=== PATIENT | female | born 1985 | race African-American/Black ===

== ENCOUNTER 2017-04-08 07:34 | Emergency (ER) | payer SELFPAY ==
[2017-04-08] MEDS ORDERED: MAG HYDROX/AL HYDROX/SIMETH SUSP 30 ML UDCUP PO ONE (07:50)
[2017-04-08] MEDS ORDERED: METOCLOPRAMIDE HCL ORAL SOLN 10 MG/10 ML UDCUP PO ONE (07:50)
[2017-04-08] MEDS ORDERED: LIDOCAINE 2% VISCOUS SOLN 20 ML UDCUP PO ONE (07:50)
--- NOTE | 2017-04-08 07:52 | ER Document Report ---
ED General - General Chief Complaint: Upper Abdominal Pain Stated Complaint: ABDOMINAL PAIN Time Seen by Provider: 04/08/17 07:43 Mode of Arrival: Ambulatory Information source: Patient Notes: 31-year-old female presents with 2 month duration of epigastric abdominal pain. Patient notes a burning sensation associated with bad taste in her mouth. Patient denies any fevers or chills. pt admits to stress at home and at work that worsens her pain TRAVEL OUTSIDE OF THE [place] IN LAST 30 DAYS: No - HPI Onset: Other Onset/Duration: Waxing and waning Quality of pain: Burning Severity: Mild Pain Level: 1 Associated symptoms: Nausea Exacerbated by: Other - stress Relieved by: Denies Similar symptoms previously: Yes Recently seen / treated by doctor: Yes - Related Data Allergies/Adverse Reactions: No Known Allergies Allergy (Unverified 10/08/11 18:26) Past Medical History - Social History Smoking Status: Never Smoker Cigarette use (# per day): No Chew tobacco use (# tins/day): No Smoking Education Provided: No Family History: Reviewed & Not Pertinent Patient has suicidal ideation: No Patient has homicidal ideation: No Pulmonary Medical History: Reports: Hx Bronchitis Renal/ Medical History: Denies: Hx Peritoneal Dialysis Past Surgical History: Reports: Hx Tubal Ligation - Immunizations Hx Diphtheria, Pertussis, Tetanus Vaccination: Yes Review of Systems - Review of Systems Notes: REVIEW OF SYSTEMS: CONSTITUTIONAL : Denies fever, chills, or sweats. Denies recent illness. EENT: Denies eye, ear, throat, or mouth pain or symptoms. Denies nasal or sinus congestion or discharge. Denies throat, tongue, or mouth swelling or difficulty swallowing. CARDIOVASCULAR: Denies chest pain. Denies palpitations or racing or irregular heart beat. Denies ankle edema. RESPIRATORY: Denies cough, cold, or chest congestion. Denies shortness of breath, difficulty breathing, or wheezing. GASTROINTESTINAL: chest pain GENITOURINARY: Denies difficulty urinating, painful urination, burning, frequency, blood in urine, or discharge. FEMALE GENITOURINARY: Denies vaginal bleeding, heavy or abnormal periods, irregular periods. Denies vaginal discharge or odor. MUSCULOSKELETAL: Denies back or neck pain or stiffness. Denies joint pain or swelling. SKIN: Denies rash, lesions or sores. HEMATOLOGIC : Denies easy bruising or bleeding. LYMPHATIC: Denies swollen, enlarged glands. NEUROLOGICAL: Denies confusion or altered mental status. Denies passing out or loss of consciousness. Denies dizziness or lightheadedness. Denies headache. Denies weakness or paralysis or loss of use of either side. Denies problems with gait or speech. Denies sensory loss, numbness, or tingling. Denies seizures. PSYCHIATRIC: Denies anxiety or stress. Denies depression, suicidal ideation, or homicidal ideation. ALL OTHER SYSTEMS REVIEWED AND NEGATIVE. PHYSICAL EXAMINATION: GENERAL: Well-appearing, well-nourished and in no acute distress. HEAD: Atraumatic, normocephalic. EYES: Pupils equal round and reactive to light, extraocular movements intact, conjunctiva are normal. ENT: Nares patent, oropharynx clear without exudates. Moist mucous membranes. NECK: Normal range of motion, supple without lymphadenopathy LUNGS: Breath sounds clear to auscultation bilaterally and equal. No wheezes rales or rhonchi. HEART: Regular rate and rhythm without murmurs ABDOMEN: Soft, epigastric pain on palpation, no rebound or guarding , no vomiting blood or dark stools at home Female : deferred Musculoskeletal: Normal range of motion, no pitting or edema. No cyanosis. NEUROLOGICAL: Cranial nerves grossly intact. Normal speech, normal gait. Normal sensory, motor exams PSYCH: Normal mood, normal affect. SKIN: Warm, Dry, normal turgor, no rashes or lesions noted. Dictation was performed using blogfoster voice recognition software Physical Exam - Vital signs Vitals: Temp Pulse Resp BP Pulse Ox 98.2 F 81 16 141/92 H 98 04/08/17 07:36 04/08/17 07:36 04/08/17 07:36 04/08/17 07:36 04/08/17 07:36 Course - Re-evaluation Re-evalutation: 04/08/17 07:52 Patient has probable gastritis, will be started on GI cocktail lab work pending 04/08/17 09:30 Patient notes symptoms have improved significantly, she will be placed on Pepcid given follow-up with GI is otherwise well-appearing no distress After performing a Medical Screening Examination, I estimate there is LOW risk for ACUTE APPENDICITIS, BOWEL OBSTRUCTION, ACUTE CHOLECYSTITIS, PERFORATED DIVERTICULITIS, INCARCERATED HERNIA, PANCREATITIS, PELVIC INFLAMMATORY DISEASE, PERFORATED ULCER, ECTOPIC , or TUBO-OVARIAN ABSCESS, thus I consider the discharge disposition reasonable. Also, there is no evidence or peritonitis , sepsis, or toxicity. I have reevaluated this patient multiple times and no significant life threatening changes are noted. The patient and I have discussed the diagnosis and risks, and we agree with discharging home with close follow-up with the understanding that symptoms and presentations can change. We also discussed returning to the Emergency Department immediately if new or worsening symptoms occur. We have discussed the symptoms which are most concerning (e.g., bloody stool, fever, changing or worsening pain, vomiting) that necessitate immediate return. - Vital Signs Vital signs: Temp Pulse Resp BP Pulse Ox 98.2 F 81 16 141/92 H 98 04/08/17 07:36 04/08/17 07:36 04/08/17 07:36 04/08/17 07:36 04/08/17 07:36 - Laboratory Result Diagrams: 04/08/17 08:00 04/08/17 08:00 Laboratory results interpreted by me: 04/08/17 04/08/17 08:00 08:40 Hgb 11.4 L Hct 34.3 L MCH 26.5 L Ur Leukocyte Esterase MODERATE H Discharge - Discharge Clinical Impression: Epigastric abdominal pain GERD (gastroesophageal reflux disease) Qualifiers: Esophagitis presence: with esophagitis Qualified Code(s): K21.0 - Gastro- esophageal reflux disease with esophagitis Condition: Stable Disposition: HOME, SELF-CARE Instructions: Gastritis ([facility]) Prescriptions: Famotidine [Pepcid 20 mg Tablet] 20 mg PO DAILY #30 tablet Referrals: RADHA PULIDO MD [ACTIVE STAFF] - Follow up tomorrow
[2017-04-08 08:19] LABS: ABSOLUTE BASOPHILS # (AUTO) 0.1 10^3/uL (0.0-0.2); ABSOLUTE EOSINOPHILS # (AUTO) 0.2 10^3/uL (0.0-0.6); ABSOLUTE LYMPHOCYTES (AUTO) 2.5 10^3/uL (0.5-4.7); ABSOLUTE MONOCYTES (AUTO) 0.6 10^3/uL (0.1-1.4); ABSOLUTE NEUT (AUTO) 6.9 10^3/uL (1.7-8.2); BASOPHILS % (AUTO) 0.8 % (0-2); EOSINOPHILS % (AUTO) 1.5 % (0-6); HEMATOCRIT 34.3 % (36.0-47.0); HEMOGLOBIN 11.4 g/dL (12.0-15.5); HGB HCT DIFFERENCE -0.1; LYMPHOCYTES % (AUTO) 24.3 % (13-45); MEAN CORPUSCULAR HEMOGLOBIN 26.5 pg (27.0-33.4); MEAN CORPUSCULAR HGB CONC 33.2 g/dL (32.0-36.0); MEAN CORPUSCULAR VOLUME 80 fl (80-97); MONOCYTES % (AUTO) 6.1 % (3-13); RED BLOOD COUNT 4.29 10^6/uL (3.72-5.28); RED CELL DISTRIBUTION WIDTH 13.7 % (11.5-14.0); SEGMENTED NEUTROPHILS % (AUTO) 67.3 % (42-78); WHITE BLOOD COUNT 10.2 10^3/uL (4.0-10.5)
[2017-04-08 08:41] LABS: ALANINE AMINOTRANSFERASE 24 U/L (9-52); ALBUMIN 4.1 g/dL (3.5-5.0); ALKALINE PHOSPHATASE 57 U/L (38-126); ANION GAP 11 (5-19); ASPARTATE AMINO TRANSFERASE 22 U/L (14-36); BILIRUBIN,DIRECT 0.4 mg/dL (0.0-0.4); BILIRUBIN,TOTAL 0.4 mg/dL (0.2-1.3); BLOOD UREA NITROGEN 8 mg/dL (7-20); CALCIUM 9.7 mg/dL (8.4-10.2); CARBON DIOXIDE 23 mmol/L (22-30); CHLORIDE 107 mmol/L (98-107); CREATININE RESULT 0.62 mg/dL (0.52-1.25); GLUCOSE 88 mg/dL (75-110); LIPASE 30.6 U/L (23-300); POTASSIUM 3.9 mmol/L (3.6-5.0); SODIUM 141.4 mmol/L (137-145); TOTAL PROTEIN 7.5 g/dL (6.3-8.2)
[2017-04-08 09:00] LABS: APPEARANCE,URINE SLIGHTLY-CLOUDY; BILIRUBIN,URINE NEGATIVE (NEGATIVE); GLUCOSE, URINE NEGATIVE (NEGATIVE); KETONES,URINE NEGATIVE (NEGATIVE); LEUKOCYTE ESTERASE,URINE MODERATE (NEGATIVE); NITRITE,URINE NEGATIVE (NEGATIVE); PROTEIN,URINE NEGATIVE (NEGATIVE); URINE SPECIFIC GRAVITY 1.012; UROBILINOGEN,URINE NEGATIVE mg/dL (<2.0)
[2017-04-08 09:43] VITALS: BP 138/86
== END 2017-04-08 09:45 | disposition home or self-care (01) ==
LOC: ER 07:34
DX: K21.0 Gastro-esophageal reflux disease with esophagitis (principal); R10.13 Epigastric pain; R07.9 Chest pain, unspecified
CPT/HCPCS: 99284; 36415; 83690; 85025; 81025; 80053; 81001; J3490

== ENCOUNTER 2017-04-21 14:57 | Emergency (ER) | payer SELFPAY ==
[2017-04-21] MEDS ORDERED: LIDOCAINE 2% VISCOUS SOLN 20 ML UDCUP PO ONE (16:37)
[2017-04-21] MEDS ORDERED: MAG HYDROX/AL HYDROX/SIMETH SUSP 30 ML UDCUP PO ONE (16:37)
[2017-04-21] MEDS ORDERED: METOCLOPRAMIDE HCL ORAL SOLN 10 MG/10 ML UDCUP PO ONE (16:37)
--- NOTE | 2017-04-21 16:39 | ER Document Report ---
ED GI/ - General Chief Complaint: Abdominal Pain Stated Complaint: CHEST PAIN Time Seen by Provider: 04/21/17 16:36 Mode of Arrival: Ambulatory Information source: Patient Notes: Pt is a 31 year old female who presents to the ER today for 1 month of epigastric pain radiating up into her chest. She was seen here on 04/08 and given pepcid after a GI cocktail did make her feel better. She states the pepcid is not working. She hasn't tried anything else for this. She admits to nausea but no vomiting, denies diarrhea, fever, chills. TRAVEL OUTSIDE OF THE [place] IN LAST 30 DAYS: No - Related Data Allergies/Adverse Reactions: No Known Allergies Allergy (Unverified 10/08/11 18:26) Past Medical History - General Information source: Patient - Social History Smoking Status: Never Smoker Chew tobacco use (# tins/day): No Frequency of alcohol use: Occasional Drug Abuse: None Family History: Reviewed & Not Pertinent Pulmonary Medical History: Reports: Hx Bronchitis Renal/ Medical History: Denies: Hx Peritoneal Dialysis Past Surgical History: Reports: Hx Tubal Ligation - Immunizations Hx Diphtheria, Pertussis, Tetanus Vaccination: Yes Review of Systems - Review of Systems Constitutional: No symptoms reported EENT: No symptoms reported Cardiovascular: No symptoms reported Respiratory: No symptoms reported Gastrointestinal: See HPI Genitourinary: No symptoms reported Female Genitourinary: No symptoms reported Musculoskeletal: No symptoms reported Skin: No symptoms reported Hematologic/Lymphatic: No symptoms reported Neurological/Psychological: No symptoms reported Physical Exam - Vital signs Vitals: Temp Pulse Resp BP Pulse Ox 98.5 F 67 18 151/101 H 100 04/21/17 15:08 04/21/17 15:08 04/21/17 15:08 04/21/17 15:08 04/21/17 15:08 - Notes Notes: PHYSICAL EXAMINATION: GENERAL: Well-appearing and in no acute distress. HEAD: Atraumatic, normocephalic. EYES: Pupils equal round and reactive to light, extraocular movements intact, sclera anicteric, conjunctiva are normal. NECK: Normal range of motion, supple without lymphadenopathy LUNGS: CTAB and equal. No wheezes rales or rhonchi. HEART: Regular rate and rhythm without murmurs ABDOMEN: Soft, epigastric tenderness. No guarding, no rebound BACK: no vertebral tenderness, normal ROM GI/: no CVA tenderness EXTREMITIES: Normal range of motion, no pitting edema. No cyanosis. NEUROLOGICAL: Cranial nerves grossly intact. Normal sensory/motor exams. PSYCH: Normal mood, normal affect. SKIN: Warm, Dry, normal turgor, no rashes or lesions noted Course - Re-evaluation Re-evalutation: 04/21/17 18:08 Pt feels better after GI cocktail. Will be discharged with carafate and prilosec. h pylori pending. labwork unremarkable. - Vital Signs Vital signs: Temp Pulse Resp BP Pulse Ox 98.6 F 67 18 151/93 H 100 04/21/17 16:32 04/21/17 16:32 04/21/17 16:32 04/21/17 16:32 04/21/17 16:32 - Laboratory Result Diagrams: 04/21/17 17:46 04/21/17 17:46 Laboratory results interpreted by me: 04/21/17 04/21/17 17:46 17:46 WBC 12.2 H MCH 26.0 L Absolute Neutrophils 8.7 H Total Protein 8.4 H Discharge - Discharge Clinical Impression: Epigastric pain Condition: Stable Disposition: HOME, SELF-CARE Additional Instructions: Return immediately for any new or worsening symptoms. Follow up with [facility], call tomorrow to make followup appointment. Prescriptions: Omeprazole Magnesium [Prilosec Otc] 20 mg PO BID #30 tablet. Sucralfate [Carafate 1 gm Tablet] 1 gm PO ACHS #40 tablet Referrals: LESLYE SPIVEY MD [ACTIVE STAFF] - Follow up as needed
[2017-04-21 18:07] LABS: ABSOLUTE BASOPHILS # (AUTO) 0.1 10^3/uL (0.0-0.2); ABSOLUTE EOSINOPHILS # (AUTO) 0.1 10^3/uL (0.0-0.6); ABSOLUTE LYMPHOCYTES (AUTO) 2.7 10^3/uL (0.5-4.7); ABSOLUTE MONOCYTES (AUTO) 0.7 10^3/uL (0.1-1.4); ABSOLUTE NEUT (AUTO) 8.7 10^3/uL (1.7-8.2); BASOPHILS % (AUTO) 0.8 % (0-2); EOSINOPHILS % (AUTO) 0.7 % (0-6); HEMATOCRIT 37.1 % (36.0-47.0); HGB HCT DIFFERENCE -1.1; LYMPHOCYTES % (AUTO) 22.2 % (13-45); MEAN CORPUSCULAR HGB CONC 32.2 g/dL (32.0-36.0); MEAN CORPUSCULAR VOLUME 81 fl (80-97); MONOCYTES % (AUTO) 5.4 % (3-13); RED CELL DISTRIBUTION WIDTH 13.8 % (11.5-14.0); SEGMENTED NEUTROPHILS % (AUTO) 70.9 % (42-78); WHITE BLOOD COUNT 12.2 10^3/uL (4.0-10.5)
[2017-04-21 18:22] LABS: ALANINE AMINOTRANSFERASE 27 U/L (9-52); ALBUMIN 4.6 g/dL (3.5-5.0); ALKALINE PHOSPHATASE 74 U/L (38-126); ANION GAP 13 (5-19); ASPARTATE AMINO TRANSFERASE 21 U/L (14-36); BILIRUBIN,DIRECT 0.3 mg/dL (0.0-0.4); BILIRUBIN,TOTAL 0.4 mg/dL (0.2-1.3); BLOOD UREA NITROGEN 11 mg/dL (7-20); CALCIUM 10.1 mg/dL (8.4-10.2); CARBON DIOXIDE 27 mmol/L (22-30); CHLORIDE 102 mmol/L (98-107); CREATININE RESULT 0.69 mg/dL (0.52-1.25); GLUCOSE 81 mg/dL (75-110); POTASSIUM 4.6 mmol/L (3.6-5.0); SODIUM 141.9 mmol/L (137-145); TOTAL PROTEIN 8.4 g/dL (6.3-8.2)
[2017-04-21] MEDS ORDERED: SUCRALFATE 1 GM TABLET PO ONE (18:52)
[2017-04-21 19:18] VITALS: BP 144/109
== END 2017-04-21 19:17 | disposition home or self-care (01) ==
LOC: ER 14:57
DX: R10.13 Epigastric pain (principal); R07.9 Chest pain, unspecified; Z98.51 Tubal ligation status
CPT/HCPCS: 99284; 86677 ×3; 36415; 84703; 85025; 80053; J3490

== ENCOUNTER 2017-10-24 10:06 | Emergency (ER) | payer SELFPAY ==
[2017-10-24] MEDS ORDERED: NAPROXEN 250 MG TABLET PO ONE (10:21)
--- NOTE | 2017-10-24 10:24 | ER Document Report ---
ED Medical Screen (RME) - General Chief Complaint: Vaginal Bleeding Stated Complaint: VAGINAL BLEEDING Time Seen by Provider: 10/24/17 10:17 Notes: 32-year-old female patient past history of bilateral tubal ligation, uterine ablation for dysfunctional bleeding in 2016. She began having dark heavy vaginal bleeding with some clots yesterday. Today it is a light red spotting. She does have significant lower abdominal cramping. I have greeted and performed a rapid initial assessment of this patient. A comprehensive ED assessment and evaluation of the patient, analysis of test results and completion of the medical decision making process will be conducted by additional ED providers. TRAVEL OUTSIDE OF THE [place] IN LAST 30 DAYS: No - Related Data Allergies/Adverse Reactions: No Known Allergies Allergy (Unverified 10/08/11 18:26) Past Medical History Pulmonary Medical History: Reports: Hx Bronchitis Renal/ Medical History: Denies: Hx Peritoneal Dialysis Past Surgical History: Reports: Hx Tubal Ligation - Immunizations Hx Diphtheria, Pertussis, Tetanus Vaccination: Yes Physical Exam - Vital signs Vitals: Temp Pulse Resp BP Pulse Ox 98.3 F 69 20 147/95 H 99 10/24/17 10:14 10/24/17 10:14 10/24/17 10:14 10/24/17 10:14 10/24/17 10:14 Course - Vital Signs Vital signs: Temp Pulse Resp BP Pulse Ox 98.3 F 69 20 147/95 H 99 10/24/17 10:14 10/24/17 10:14 10/24/17 10:14 10/24/17 10:14 10/24/17 10:14
[2017-10-24 10:46] LABS: ABSOLUTE EOSINOPHILS # (AUTO) 0.1 10^3/uL (0.0-0.6); ABSOLUTE LYMPHOCYTES (AUTO) 2.6 10^3/uL (0.5-4.7); ABSOLUTE MONOCYTES (AUTO) 0.7 10^3/uL (0.1-1.4); BASOPHILS % (AUTO) 0.3 % (0-2); EOSINOPHILS % (AUTO) 0.9 % (0-6); HEMATOCRIT 37.8 % (36.0-47.0); HEMOGLOBIN 12.4 g/dL (12.0-15.5); MEAN CORPUSCULAR HEMOGLOBIN 26.4 pg (27.0-33.4); MEAN CORPUSCULAR HGB CONC 32.7 g/dL (32.0-36.0); MEAN CORPUSCULAR VOLUME 81 fl (80-97); MONOCYTES % (AUTO) 7.5 % (3-13); PLATELET COUNT 338 10^3/uL (150-450); RED BLOOD COUNT 4.68 10^6/uL (3.72-5.28); RED CELL DISTRIBUTION WIDTH 14.2 % (11.5-14.0); SEGMENTED NEUTROPHILS % (AUTO) 63.3 % (42-78); TOTAL CELLS COUNTED % (AUTO) 100 %; WHITE BLOOD COUNT 9.4 10^3/uL (4.0-10.5)
[2017-10-24 11:04] LABS: ALANINE AMINOTRANSFERASE 31 U/L (9-52); ALBUMIN 4.3 g/dL (3.5-5.0); ALKALINE PHOSPHATASE 65 U/L (38-126); ANION GAP 11 (5-19); ASPARTATE AMINO TRANSFERASE 24 U/L (14-36); BILIRUBIN,DIRECT 0.2 mg/dL (0.0-0.4); BILIRUBIN,TOTAL 0.4 mg/dL (0.2-1.3); BLOOD UREA NITROGEN 10 mg/dL (7-20); CALCIUM 9.9 mg/dL (8.4-10.2); CARBON DIOXIDE 27 mmol/L (22-30); CHLORIDE 103 mmol/L (98-107); GLUCOSE 85 mg/dL (75-110); POTASSIUM 4.7 mmol/L (3.6-5.0); SODIUM 141.3 mmol/L (137-145); TOTAL PROTEIN 7.7 g/dL (6.3-8.2)
--- NOTE | 2017-10-24 11:07 | ER Document Report ---
ED General - General Chief Complaint: Vaginal Bleeding Stated Complaint: VAGINAL BLEEDING Time Seen by Provider: 10/24/17 10:17 Mode of Arrival: Ambulatory Information source: Patient Notes: Patient presents emergency department with complaints of vaginal bleeding. She reports last night she noted vaginal bleeding, a blood clot. She reports her abdomen feels warm now, denies pain since naproxen provided here. Reports spotting now. Denies f/n/v/d. Patient denies trauma. Reports no recent sexual interactions. Denies pain with void. TRAVEL OUTSIDE OF THE [place] IN LAST 30 DAYS: No - Related Data Allergies/Adverse Reactions: No Known Allergies Allergy (Unverified 10/08/11 18:26) Past Medical History - General Information source: Patient Last Menstrual Period: 08/29/2015 - Social History Smoking Status: Never Smoker Chew tobacco use (# tins/day): No Frequency of alcohol use: Occasional Drug Abuse: None Family History: CAD, DM, Hypertension, Other - breast cancer Patient has suicidal ideation: No Patient has homicidal ideation: No Pulmonary Medical History: Reports: Hx Bronchitis Renal/ Medical History: Denies: Hx Peritoneal Dialysis Past Surgical History: Reports: Hx Gynecologic Surgery - ablation, Hx Tubal Ligation - Immunizations Hx Diphtheria, Pertussis, Tetanus Vaccination: Yes Review of Systems - Review of Systems Notes: Review HPI for review of systems., All other systems negative Physical Exam - Vital signs Vitals: Temp Pulse Resp BP Pulse Ox 98.3 F 69 20 147/95 H 99 10/24/17 10:14 10/24/17 10:14 10/24/17 10:14 10/24/17 10:14 10/24/17 10:14 - Notes Notes: PHYSICAL EXAMINATION: GENERAL: Well-appearing and in no acute distress, anxious looking HEAD: Atraumatic, normocephalic. EYES: Pupils equal round extraocular movements intact, sclera anicteric, conjunctiva are normal. ENT: nares patent, . Moist mucous membranes. NECK: Normal range of motion, supple without lymphadenopathy LUNGS: CTAB and equal. No wheezes rales or rhonchi. HEART: Regular rate and rhythm without murmurs ABDOMEN: Soft, no tenderness. No guarding, no rebound reports her abdomen feels warm EXTREMITIES: Normal range of motion, no pitting edema. No cyanosis. NEUROLOGICAL: Cranial nerves grossly intact. Normal sensory/motor exams. PSYCH: Normal mood, normal affect. SKIN: Warm, Dry, normal turgor, no rashes or lesions noted Course - Re-evaluation Re-evalutation: 10/24/17 11:[address] Gordon, US report discussed. He reports this is not uncommon. Patient to fu with REPAIR MILLER. Patient was instructed on ultrasound report. Patient was instructed on the importance of follow-up with REPAIR MILLER or the health department. She was also instructed to return to the emergency department for heavy bleeding. 10/24/17 12:02 Patient declines pelvic exam at this time. She denies pelvic pain, denies vag. discharge. Patient reports that she has not been spotting since her exam. Again empathized the importance of fu andreturn to ed for worsening conditions. - Vital Signs Vital signs: Temp Pulse Resp BP Pulse Ox 98.3 F 69 20 147/95 H 99 10/24/17 10:14 10/24/17 10:14 10/24/17 10:14 10/24/17 10:14 10/24/17 10:14 - Laboratory Result Diagrams: 10/24/17 10:31 10/24/17 10:31 Laboratory results interpreted by me: 10/24/17 10:31 MCH 26.4 L RDW 14.2 H - Diagnostic Test Radiology reviewed: Image reviewed, Reports reviewed Discharge - Discharge Clinical Impression: Vaginal bleeding Fibroid Qualifiers: Uterine leiomyoma location: unspecified location Qualified Code(s): D25.9 - Leiomyoma of uterus, unspecified Condition: Stable Disposition: HOME, SELF-CARE Instructions: [facility] [place] Additional Instructions: ,*You have been evaluated for vaginal bleeding, cramping, suspect fibroid *Take ibuprofen for abdominal cramping *Follow up with an REPAIR MILLER or the health department Thursday *Return to ED for worsening condition, changes, needs *Return to ED if not better in 24 hours Monitor your blood pressure. Your blood pressure was elevated today. This may be because you were anxious, in pain or because you need medication. It is important to follow up with your primary care provider for full evaluation. Forms: Elevated Blood Pressure
--- NOTE | 2017-10-24 11:17 | RADIOLOGY REPORT (SQ) ---
EXAM DESCRIPTION: U/S NON-OB PELVIS TV W/O DOP COMPLETED DATE/TIME: 10/24/2017 11:00 am REASON FOR STUDY: bleeding w/ cramps-ablation in 2016, BTL COMPARISON: 04/06/2011 TECHNIQUE: Dynamic and static grayscale images acquired of the pelvis via transvaginal approach and recorded on PACS. Additional selected color Doppler and spectral images recorded. LIMITATIONS: Patient body habitus FINDINGS: UTERUS: There is a 1 cm rounded hypoechoic lesion in the posterior wall of the uterus, lik elieser representing a fibroid. The uterus is otherwise unremarkable. ENDOMETRIAL STRIPE: The endometrium measures 11 mm in thickness. There is some fluid noted within th e endometrial canal. CERVIX: No nabothian cysts. RIGHT OVARY: Ovary not visualized. RIGHT OVARY DOPPLER: Ovary not visualized. LEFT OVARY: Ovary not visualized. LEFT OVARY DOPPLER: Ovary not visualized. FREE FLUID: None noted. OTHER: No other significant finding. MEASUREMENTS: UTERUS: 8.9 x 5.3 x 5.1 cm ENDOMETRIAL STRIPE: 11 mm RIGHT OVARY: Not visualized. LEFT OVARY: Not visualized. IMPRESSION: 1. Fluid present within the endometrial canal 2. 1 cm hypoechoic mass in the posterior wall of the uterus, likely representing a fibroid. 3. Nonvisualization of the ovaries secondary to body habitus and overlying bowel gas TECHNICAL DOCUMENTATION: JOB ID: [id number] [employer]- All Rights Reserved Reading location - IP/workstation name: [email or web address]
[2017-10-24 12:28] VITALS: BP 144/79
== END 2017-10-24 12:28 | disposition home or self-care (01) ==
LOC: ER 10:06
DX: N93.8 Other specified abnormal uterine and vaginal bleeding (principal); D25.9 Leiomyoma of uterus, unspecified; Z98.51 Tubal ligation status
CPT/HCPCS: 36415; 76830; 80053; 84703; 85025; 99284

== ENCOUNTER 2018-03-01 11:02 | Emergency (ER) | payer SELFPAY ==
[2018-03-01] MEDS ORDERED: RINGERS SOLUTION,LACTATED 1,000 ML IV ONE (11:52)
[2018-03-01 12:44] LABS: APPEARANCE,URINE CLEAR; BILIRUBIN,URINE NEGATIVE (NEGATIVE); COLOR,URINE STRAW; GLUCOSE, URINE NEGATIVE (NEGATIVE); KETONES,URINE NEGATIVE (NEGATIVE); LEUKOCYTE ESTERASE,URINE SMALL (NEGATIVE); NITRITE,URINE NEGATIVE (NEGATIVE); PROTEIN,URINE NEGATIVE (NEGATIVE); UROBILINOGEN,URINE NEGATIVE mg/dL (<2.0)
--- NOTE | 2018-03-01 15:56 | RADIOLOGY REPORT (SQ) ---
EXAM DESCRIPTION: U/S NON OB PEL W/DOPPLER COMPLETED DATE/TIME: 03/01/2018 3:24 pm REASON FOR STUDY: pelvic pain, abn bleeding COMPARISON: 10/24/2017 TECHNIQUE: Dynamic and static grayscale images acquired of the pelvis via transabdominal approach an d recorded on PACS. Additional selected color Doppler and spectral images recorded. LIMITATIONS: None. FINDINGS: UTERUS: Normal contour. There is about 11 mm hypodense area adjacent to the endometrium i n the posterior myometrium suggestive of a fibroid. ENDOMETRIAL STRIPE: Somewhat heterogeneous in appearance. Question presence of a small amount of flu id in the endometrial canal. No significant thickening. CERVIX: 2.1 cm. RIGHT OVARY AND DOPPLER: Normal size. No worrisome masses. Normal arterial vascular flow without evid ence for torsion. LEFT OVARY AND DOPPLER: Normal size. No worrisome masses. Normal arterial vascular flow without evide nce for torsion. FREE FLUID: None noted. OTHER: No other significant finding. MEASUREMENTS: UTERUS: 8.1 x 4 x 4.3 cm. RIGHT OVARY: 3.3 x 1.5 x 1.9 cm. LEFT OVARY: 2.9 x 1.7 x 1.9 cm. IMPRESSION: Small sub endometrial fibroid. Very small amount of fluid in the endometrial canal. TECHNICAL DOCUMENTATION: JOB ID: [id number] [employer]- All Rights Reserved Rev-11/27 Reading location - IP/workstation name: [email or web address]
[2018-03-01 15:58] LABS: ABSOLUTE BASOPHILS # (AUTO) 0.1 10^3/uL (0.0-0.2); ABSOLUTE EOSINOPHILS # (AUTO) 0.1 10^3/uL (0.0-0.6); ABSOLUTE LYMPHOCYTES (AUTO) 3.2 10^3/uL (0.5-4.7); ABSOLUTE MONOCYTES (AUTO) 0.4 10^3/uL (0.1-1.4); ABSOLUTE NEUT (AUTO) 6.9 10^3/uL (1.7-8.2); BASOPHILS % (AUTO) 1.1 % (0-2); EOSINOPHILS % (AUTO) 0.7 % (0-6); HEMATOCRIT 36.9 % (36.0-47.0); HEMOGLOBIN 12.3 g/dL (12.0-15.5); LYMPHOCYTES % (AUTO) 29.9 % (13-45); MEAN CORPUSCULAR HGB CONC 33.4 g/dL (32.0-36.0); MEAN CORPUSCULAR VOLUME 81 fl (80-97); MONOCYTES % (AUTO) 4.2 % (3-13); PLATELET COUNT 341 10^3/uL (150-450); RED BLOOD COUNT 4.57 10^6/uL (3.72-5.28); RED CELL DISTRIBUTION WIDTH 13.9 % (11.5-14.0); SEGMENTED NEUTROPHILS % (AUTO) 64.1 % (42-78); TOTAL CELLS COUNTED % (AUTO) 100 %; WHITE BLOOD COUNT 10.8 10^3/uL (4.0-10.5)
--- NOTE | 2018-03-01 16:07 | ER Document Report ---
ED General - General Chief Complaint: Vaginal Bleeding Stated Complaint: VAGINAL BLEEDING Time Seen by Provider: 03/01/18 11:46 Notes: 32-year-old female patient emergency department chief complaint of heavy vaginal bleeding and syncope. Patient states that she had this happen once before. Has gone through a whole pack of pads over the last couple of days. Patient says that she was at work but like she was going to pass out. The next thing she remembers she was in the office laying on the floor. Prior history of significant vaginal bleeding requiring ablation. TRAVEL OUTSIDE OF THE [place] IN LAST 30 DAYS: No - HPI Onset: Just prior to arrival Onset/Duration: Gradual Quality of pain: No pain Severity: Mild Pain Level: 0 - Related Data Allergies/Adverse Reactions: No Known Allergies Allergy (Verified 03/01/18 11:03) Past Medical History - General Information source: Patient - Social History Smoking Status: Never Smoker Cigarette use (# per day): No Frequency of alcohol use: None Drug Abuse: None Lives with: Spouse/Significant other Family History: CAD, DM, Hypertension, Other - breast cancer Patient has suicidal ideation: No Patient has homicidal ideation: No - Medical History Medical History: Negative Pulmonary Medical History: Reports: Hx Bronchitis Renal/ Medical History: Denies: Hx Peritoneal Dialysis Past Surgical History: Reports: Hx Gynecologic Surgery - ablation, Hx Tubal Ligation - Immunizations Hx Diphtheria, Pertussis, Tetanus Vaccination: Yes Review of Systems - Review of Systems Notes: Constitutional: denies: Chills, Diaphoresis, Fever, Malaise, Weakness EENT: denies: Eye discharge, Blurred vision, Tearing, Double vision, Nose congestion, Nose discharge, Throat swelling, Mouth pain Cardiovascular: denies: Palpitations, Heart racing, Orthopnea, Dyspnea, Chest pain. Complains of syncopal episode Respiratory: denies: Cough, Hurts to breathe, Wheezing, Shortness of breath Gastrointestinal: denies: Abdominal pain, Diarrhea, Nausea, Vomiting, Black stools, bright red blood in stool Genitourinary: denies: Burning, Dysuria, Discharge, Frequency, Flank pain, Hematuria. Complains of significant vaginal bleeding. Musculoskeletal: denies: Joint pain, Joint swelling, Muscle pain, Muscle stiffness, back pain Hematologic/Lymphatic: denies: Anemia, Easy bleeding, Easy bruising, Blood clots Neurological/Psychological: denies: Confusion, Dementia, Depression, Loss of consciousness Skin: No lesions, no masses, no skin breakdown, no abscesses Physical Exam - Vital signs Vitals: Temp Pulse Resp BP Pulse Ox 98.2 F 55 L 16 144/94 H 100 03/01/18 11:22 03/01/18 11:22 03/01/18 11:22 03/01/18 11:22 03/01/18 11:22 Interpretation: Normal - General General appearance: Appears well, Alert - HEENT Head: Normocephalic, Atraumatic Eyes: Normal Pupils: PERRL - Respiratory Respiratory status: No respiratory distress Chest status: Nontender Breath sounds: Normal Chest palpation: Normal - Cardiovascular Rhythm: Regular Heart sounds: Normal auscultation Murmur: No - Abdominal Inspection: Normal Distension: No distension Bowel sounds: Normal Tenderness: Nontender Organomegaly: No organomegaly - Back Back: Normal, Nontender - Extremities General upper extremity: Normal inspection, Nontender, Normal color, Normal ROM , Normal temperature General lower extremity: Normal inspection, Nontender, Normal color, Normal ROM , Normal temperature, Normal weight bearing. No: Emili's sign - Neurological Neuro grossly intact: Yes Cognition: Normal Orientation: AAOx4 Janine Coma Scale Eye Opening: Spontaneous Janine Coma Scale Verbal: Oriented Janine Coma Scale Motor: Obeys Commands Janine Coma Scale Total: 15 Speech: Normal Motor strength normal: LUE, RUE, LLE, RLE Sensory: Normal - Psychological Associated symptoms: Normal affect, Normal mood - Skin Skin Temperature: Warm Skin Moisture: Dry Skin Color: Normal Course - Re-evaluation Re-evalutation: 03/01/18 17:36 Patient's labs are unremarkable. EKG normal. Patient does not meet any criteria for immediate surgery. Is not exsanguinating. Not hypotensive. Not tachycardic. Has a fibroid which will need to be evaluated by RAILWAY SIGNAL OPERATOR as an outpatient. Will DC at this time in stable condition. 03/01/18 17:37 Laboratory 03/01/18 03/01/18 03/01/18 12:01 15:40 15:40 WBC 10.8 H RBC 4.57 Hgb 12.3 Hct 36.9 MCV 81 MCH 27.0 MCHC 33.4 RDW 13.9 Plt Count 341 Seg Neutrophils % 64.1 Lymphocytes % 29.9 Monocytes % 4.2 Eosinophils % 0.7 Basophils % 1.1 Absolute Neutrophils 6.9 Absolute Lymphocytes 3.2 Absolute Monocytes 0.4 Absolute Eosinophils 0.1 Absolute Basophils 0.1 Sodium 141.3 Potassium 4.0 Chloride 102 Carbon Dioxide 27 Anion Gap 12 BUN 9 Creatinine 0.68 Est GFR ( Amer) > 60 Est GFR (Non-Af Amer) > 60 Glucose 78 Calcium 9.4 Total Bilirubin 0.4 Direct Bilirubin 0.3 Neonat Total Bilirubin Not Reportable Neonat Direct Bilirubin Not Reportable Neonat Indirect Bili Not Reportable AST 29 ALT 15 Alkaline Phosphatase 62 Total Protein 9.1 H Albumin 4.5 Beta HCG, Quant < 2.39 Total Beta HCG NEGATIVE Urine Color STRAW Urine Appearance CLEAR Urine pH 6.0 Ur Specific [place] 1.010 Urine Protein NEGATIVE Urine Glucose (UA) NEGATIVE Urine Ketones NEGATIVE Urine Blood NEGATIVE Urine Nitrite NEGATIVE Urine Bilirubin NEGATIVE Urine Urobilinogen NEGATIVE Ur Leukocyte Esterase SMALL H Urine WBC (Auto) 5 Urine RBC (Auto) 1 Squamous Epi Cells Auto 2 Urine Mucus (Auto) RARE Urine Ascorbic Acid NEGATIVE Pelvis Ultrasound 03/01/18 11:52 IMPRESSION: Small sub endometrial fibroid. Very small amount of fluid in the endometrial canal. - Vital Signs Vital signs: Temp Pulse Resp BP Pulse Ox 98.2 F 55 L 16 144/94 H 100 03/01/18 11:22 03/01/18 11:22 03/01/18 11:22 03/01/18 11:22 03/01/18 11:22 - Laboratory Result Diagrams: 03/01/18 15:40 03/01/18 15:40 Laboratory results interpreted by me: 03/01/18 03/01/18 03/01/18 12:01 15:40 15:40 WBC 10.8 H Total Protein 9.1 H Ur Leukocyte Esterase SMALL H Discharge - Discharge Clinical Impression: Uterine fibroid Qualifiers: Uterine leiomyoma location: unspecified location Qualified Code(s): D25.9 - Leiomyoma of uterus, unspecified Condition: Good Disposition: HOME, SELF-CARE Instructions: Dysfunctional Uterine Bleeding ([facility]) Additional Instructions: You have a fibroid in her uterus which is leading to increased bleeding. Please make an appointment with RAILWAY SIGNAL OPERATOR. Return immediately for any worsening bleeding, passing out, severe pain or other concerns. Forms: Return to Work Referrals: FREDERICK HUERTA MD [ACTIVE STAFF] - Follow up as needed
[2018-03-01 16:12] LABS: ALANINE AMINOTRANSFERASE 15 U/L (9-52); ALBUMIN 4.5 g/dL (3.5-5.0); ALKALINE PHOSPHATASE 62 U/L (38-126); ANION GAP 12 (5-19); ASPARTATE AMINO TRANSFERASE 29 U/L (14-36); BILIRUBIN,DIRECT 0.3 mg/dL (0.0-0.4); BILIRUBIN,TOTAL 0.4 mg/dL (0.2-1.3); BLOOD UREA NITROGEN 9 mg/dL (7-20); CALCIUM 9.4 mg/dL (8.4-10.2); CARBON DIOXIDE 27 mmol/L (22-30); CHLORIDE 102 mmol/L (98-107); GLUCOSE 78 mg/dL (75-110); SODIUM 141.3 mmol/L (137-145); TOTAL PROTEIN 9.1 g/dL (6.3-8.2)
[2018-03-01 18:14] VITALS: BP 137/88
--- NOTE | 2018-03-01 22:46 | EKG REPORT ---
SEVERITY:- BORDERLINE ECG - SINUS ARRHYTHMIA, RATE 47-70 INFERIOR Q WAVES, PROBABLY NORMAL VARIATION : Confirmed by: Betzaida Sena 01-Mar-2018 22:44:54
== END 2018-03-01 18:14 | disposition home or self-care (01) ==
LOC: ER 11:02
DX: D25.9 Leiomyoma of uterus, unspecified (principal); N93.9 Abnormal uterine and vaginal bleeding, unspecified; R55 Syncope and collapse
CPT/HCPCS: 93005; 99284; 96360; 96361; 36415; 84702; 85025; 80053; 81001; 76856; 93976; 93010; J7120

== ENCOUNTER 2018-03-13 07:01 | Emergency (ER) | payer SELFPAY ==
[2018-03-13] MEDS ORDERED: ONDANSETRON HCL INJ/PF 4 MG/2 ML SDV IV ONE (09:20)
[2018-03-13 09:41] LABS: APPEARANCE,URINE CLEAR; BILIRUBIN,URINE NEGATIVE (NEGATIVE); COLOR,URINE YELLOW; GLUCOSE, URINE NEGATIVE (NEGATIVE); KETONES,URINE NEGATIVE (NEGATIVE); LEUKOCYTE ESTERASE,URINE TRACE (NEGATIVE); NITRITE,URINE NEGATIVE (NEGATIVE); PROTEIN,URINE 100 mg/dL (NEGATIVE); URINE SPECIFIC GRAVITY 1.012; UROBILINOGEN,URINE NEGATIVE mg/dL (<2.0)
--- NOTE | 2018-03-13 09:48 | RADIOLOGY REPORT (SQ) ---
EXAM DESCRIPTION: CT HEAD WITHOUT COMPLETED DATE/TIME: 03/13/2018 9:29 am REASON FOR STUDY: seizure COMPARISON: None. TECHNIQUE: Axial images acquired through the brain without intravenous contrast. Images reviewed wi th bone, brain and subdural windows. Additional sagittal and coronal reconstructions were generated. Images stored on PACS. All CT scanners at this facility use dose modulation, iterative reconstruction, and/or weight based d osing when appropriate to reduce radiation dose to as low as reasonably achievable (ALARA). [facility]: Dose Right [facility]: CareDose [facility]: Dose Right [facility]: Teradose 4D [facility]: Smart TranSiC RADIATION DOSE: CT Rad equipment meets quality standard of care and radiation dose reduction techniq ues were employed. CTDIvol: 53.2 mGy. DLP: 937 mGy-cm. mGy. LIMITATIONS: None. FINDINGS: VENTRICLES: Normal size. No hydrocephalus. CEREBRUM: No masses. No hemorrhage. No midline shift. No evidence for acute infarction. Slight irr egular appearance of the cortex right frontal with loss of volume and minimal distortion of the white matter along the right lateral ventricle. Potential subtle closed lip schizencephaly. CEREBELLUM: No hemorrhage or mass or shift evident. Mild inferior displacement of the cerebellar ton sils, potential mild Chiari malformation. EXTRAAXIAL SPACES: No fluid collections. No masses. ORBITS AND GLOBE: No intra- or extraconal masses. Normal contour of globe without masses. CALVARIUM: No fracture. PARANASAL SINUSES: No fluid or mucosal thickening. SOFT TISSUES: No mass or hematoma. OTHER: No other significant finding. IMPRESSION: 1. Suspect congenital changes as above. This includes potential mild closed lip schizen cephaly and minimal Chiari malformation. No acute abnormality detected. EVIDENCE OF ACUTE STROKE: NO. COMMENT: Quality ID # [id number]: Final reports with documentation of one or more dose reduction techniques (e.g., Automated exposure control, adjustment of the mA and/or kV according to patient size, use of iterative reconstruction technique) TECHNICAL DOCUMENTATION: JOB ID: [id number] [employer]- All Rights Reserved Reading location - IP/workstation name: [email or web address]
[2018-03-13 10:32] LABS: ABSOLUTE BASOPHILS # (AUTO) 0.1 10^3/uL (0.0-0.2); ABSOLUTE LYMPHOCYTES (AUTO) 1.6 10^3/uL (0.5-4.7); ABSOLUTE MONOCYTES (AUTO) 0.7 10^3/uL (0.1-1.4); ABSOLUTE NEUT (AUTO) 10.9 10^3/uL (1.7-8.2); BASOPHILS % (AUTO) 0.5 % (0-2); EOSINOPHILS % (AUTO) 0.2 % (0-6); HEMATOCRIT 37.4 % (36.0-47.0); HEMOGLOBIN 12.2 g/dL (12.0-15.5); LYMPHOCYTES % (AUTO) 11.8 % (13-45); MEAN CORPUSCULAR HEMOGLOBIN 26.5 pg (27.0-33.4); MEAN CORPUSCULAR HGB CONC 32.7 g/dL (32.0-36.0); MEAN CORPUSCULAR VOLUME 81 fl (80-97); MONOCYTES % (AUTO) 5.2 % (3-13); PLATELET COUNT 344 10^3/uL (150-450); RED BLOOD COUNT 4.61 10^6/uL (3.72-5.28); RED CELL DISTRIBUTION WIDTH 13.8 % (11.5-14.0); SEGMENTED NEUTROPHILS % (AUTO) 82.3 % (42-78); TOTAL CELLS COUNTED % (AUTO) 100 %; WHITE BLOOD COUNT 13.3 10^3/uL (4.0-10.5)
[2018-03-13 10:49] LABS: ANION GAP 9 (5-19); BLOOD UREA NITROGEN 7 mg/dL (7-20); CALCIUM 9.9 mg/dL (8.4-10.2); CARBON DIOXIDE 28 mmol/L (22-30); CHLORIDE 106 mmol/L (98-107); GLUCOSE 82 mg/dL (75-110); POTASSIUM 4.5 mmol/L (3.6-5.0); SODIUM 142.8 mmol/L (137-145)
--- NOTE | 2018-03-13 11:43 | ER Document Report ---
ED Seizure - General Chief Complaint: Seizure Stated Complaint: POSSIBLE SEIZURE Time Seen by Provider: 03/13/18 09:08 Mode of Arrival: Ambulatory Information source: Patient, Relative - [facility] Patient complains to provider of: First seizure - 32-year-old female who presents for evaluation after her fianc witnessed her have an episode of shaking while she was sleeping with some drooling today. She subsequently woke up but was confused at that time and thereafter was transported to the hospital , she notes that she did have a loss of some bladder continence during the initial episode and thinks she bit the side of her tongue, she denies any recent trauma to the head or injuries. She has never had any seizures in the past that she knows of has no known health problems but does have a history of migraines according to her. She denies any focal numbness or weakness at this time or bleeding problems that she knows of. Denies any substance use or abuse , denies any alcohol use - Related Data Allergies/Adverse Reactions: No Known Allergies Allergy (Verified 03/01/18 11:03) Past Medical History - General Information source: Patient - Social History Smoking Status: Unknown if Ever Smoked Frequency of alcohol use: None Family History: CAD, DM, Hypertension, Other - breast cancer Patient has suicidal ideation: No Patient has homicidal ideation: No Pulmonary Medical History: Reports: Hx Bronchitis Renal/ Medical History: Denies: Hx Peritoneal Dialysis Past Surgical History: Reports: Hx Gynecologic Surgery - ablation, Hx Tubal Ligation - Immunizations Hx Diphtheria, Pertussis, Tetanus Vaccination: Yes Review of Systems - Review of Systems -: Yes All other systems reviewed and negative Physical Exam - Vital signs Vitals: Resp BP Pulse Ox 24 H 135/83 H 97 03/13/18 07:17 03/13/18 07:17 03/13/18 07:17 - General General appearance: Appears well In distress: None - HEENT Head: Normocephalic Eyes: Normal Conjunctiva: Normal Cornea: Normal Extraocular movements intact: Yes Eyelashes: Normal Pupils: PERRL - Respiratory Respiratory status: No respiratory distress Chest status: Nontender Breath sounds: Normal Chest palpation: Normal - Cardiovascular Rhythm: Regular, Other Murmur: No - Abdominal Inspection: Normal Distension: No distension Tenderness: Nontender - Back Back: Normal - Extremities General upper extremity: Normal inspection, Normal strength General lower extremity: Normal inspection, Normal strength - Neurological Neuro grossly intact: Yes Cognition: Normal Orientation: AAOx4 Janine Coma Scale Eye Opening: Spontaneous Janine Coma Scale Verbal: Oriented [place] Coma Scale Motor: Obeys Commands Janine Coma Scale Total: 15 Speech: Normal Cranial nerves: Normal Cerebellar coordination: Normal Motor strength normal: LUE, RUE, LLE, RLE Additional motor exam normals: Equal biometric technician Sensory: Normal - Psychological Associated symptoms: Normal affect Course - Re-evaluation Re-evalutation: 03/13/18 17:06 This well-appearing 32-year-old female presents after an episode of brief self resolved shaking today. She has never had any seizure in the past, is unclear whether or not this episode represents a seizure given that her fianc while he witnessed it is uncertain of the exact events, he noted whole body shaking with some drooling at the mouth. She does sound to have had a brief postictal period which resolved thereafter, the patient notes that she has had an extreme amount of stress in the last month which is made sleeping more difficult. CT imaging of the head demonstrate that this patient likely had a long-standing undiagnosed Chiari malformation, she has never been told this in the past but does have a long history of headaches and migraines. She is neurologically intact at this time without any focal numbness or weakness. She did have some loss of continence during the event but has had a loss of continence related to her uterine fibroids over the last several weeks. Labs do not demonstrate any obvious abnormality this chest and underlying cause for seizure including but not limited to hyponatremia or other arrhythmia. Given that the patient is now neurologically intact well-appearing ambulatory without assistance and able to tolerate p.o. believe that she is likely safe for outpatient follow-up. Gave her strict precautions regarding automobile use as well as work. She will return for any worsening symptoms or return for any seizing. - Vital Signs Vital signs: Temp Pulse Resp BP Pulse Ox 12 122/67 100 03/13/18 11:13 03/13/18 11:13 03/13/18 11:13 - Laboratory Result Diagrams: 03/13/18 10:14 03/13/18 10:14 Laboratory results interpreted by me: 03/13/18 03/13/18 09:00 10:14 WBC 13.3 H MCH 26.5 L Seg Neutrophils % 82.3 H Lymphocytes % 11.8 L Absolute Neutrophils 10.9 H Urine Protein 100 H Ur Leukocyte Esterase TRACE H Discharge - Discharge Clinical Impression: Seizure Condition: Good Disposition: HOME, SELF-CARE Instructions: Headache ([facility]), New Seizure ([facility]) Additional Instructions: You were seen today for a possible seizure, you had an evaluation including a CAT scan of your head. It shows that you may have a Chiari malformation. Inform your Dr. of this a your earliest convenience. Use the headache medication prescribed to you only as needed. Do not drive, do not swim alone, not to any other activity which would be dangerous if he were to have a seizure. Return for any recurrent seizures worsening numbness or weakness or other symptoms. Prescriptions: Butalb/Acetaminophen/Caffeine [Fioricet 50-300-40 mg Capsule] 1 cap PO Q4 PRN # 30 cap PRN Reason: Forms: Return to Work
[2018-03-13] MEDS ORDERED: BUTALB/ACETAMINOPHEN/CAFFEINE 1 TAB EACH PO ONE (11:44)
[2018-03-13 12:14] VITALS: BP 122/67
== END 2018-03-13 12:14 | disposition home or self-care (01) ==
LOC: ER 07:01
DX: R56.9 Unspecified convulsions (principal); R32 Unspecified urinary incontinence
CPT/HCPCS: 99285; 96374; 36415; 85025; 81025; 80048; 81001; 70450; J3490; J2405

== ENCOUNTER 2018-06-17 13:50 | Emergency (ER) | payer MEDICAID ==
--- NOTE | 2018-06-17 14:36 | ER Document Report ---
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 Going on since this morning. Associated with diarrhea described as black stools. General malaise. No fever chills or other constitutional symptoms. No focal weaknesses noted. TRAVEL OUTSIDE OF THE [place] IN LAST 30 DAYS: No - Related Data Allergies/Adverse Reactions: No Known Allergies Allergy (Verified 06/17/18 13:52) Past Medical History - Social History Frequency of alcohol use: None Drug Abuse: None Pulmonary Medical History: Reports: Hx Bronchitis Neurological Medical History: Reports: Hx Seizures Renal/ Medical History: Denies: Hx Peritoneal Dialysis Past Surgical History: Reports: Hx Gynecologic Surgery - ablation, Hx Tubal Ligation - Immunizations Hx Diphtheria, Pertussis, Tetanus Vaccination: Yes Physical Exam - Vital signs Vitals: Temp Pulse Resp BP Pulse Ox 98.4 F 80 14 139/88 H 98 06/17/18 13:52 06/17/18 13:52 06/17/18 13:52 06/17/18 13:52 06/17/18 13:52 Course - Vital Signs Vital signs: Temp Pulse Resp BP Pulse Ox 98.4 F 80 14 139/88 H 98 06/17/18 13:52 06/17/18 13:52 06/17/18 13:52 06/17/18 13:52 06/17/18 13:52 Doctor's Discharge - Discharge Referrals: LINDA GUPTA PA-C [Primary Care Provider] - Follow up as needed
[2018-06-17 15:19] LABS: ABSOLUTE BASOPHILS # (AUTO) 0.2 10^3/uL (0.0-0.2); ABSOLUTE EOSINOPHILS # (AUTO) 0.2 10^3/uL (0.0-0.6); ABSOLUTE LYMPHOCYTES (AUTO) 2.8 10^3/uL (0.5-4.7); ABSOLUTE MONOCYTES (AUTO) 0.6 10^3/uL (0.1-1.4); ABSOLUTE NEUT (AUTO) 8.1 10^3/uL (1.7-8.2); BASOPHILS % (AUTO) 1.3 % (0-2); EOSINOPHILS % (AUTO) 1.3 % (0-6); HEMATOCRIT 35.1 % (36.0-47.0); HEMOGLOBIN 11.5 g/dL (12.0-15.5); LYMPHOCYTES % (AUTO) 23.7 % (13-45); MEAN CORPUSCULAR HEMOGLOBIN 26.6 pg (27.0-33.4); MEAN CORPUSCULAR HGB CONC 32.8 g/dL (32.0-36.0); MEAN CORPUSCULAR VOLUME 81 fl (80-97); MONOCYTES % (AUTO) 5.2 % (3-13); PLATELET COUNT 348 10^3/uL (150-450); RED BLOOD COUNT 4.34 10^6/uL (3.72-5.28); RED CELL DISTRIBUTION WIDTH 14.2 % (11.5-14.0); SEGMENTED NEUTROPHILS % (AUTO) 68.5 % (42-78); TOTAL CELLS COUNTED % (AUTO) 100 %; WHITE BLOOD COUNT 11.8 10^3/uL (4.0-10.5)
--- NOTE | 2018-06-17 15:19 | RADIOLOGY REPORT (SQ) ---
EXAM DESCRIPTION: KUB/ABDOMEN (SINGLE VIEW) COMPLETED DATE/TIME: 06/17/2018 3:10 pm REASON FOR STUDY: Abdominal pain COMPARISON: None. NUMBER OF VIEWS: One view. TECHNIQUE: Supine radiographic image of the abdomen acquired. LIMITATIONS: None. FINDINGS: BOWEL GAS PATTERN: General paucity of bowel gas with scattered gas and stool present to t he transverse colon. There are no obvious dilated loops of bowel to suggest obstruction. No free ai r in the abdomen on supine radiographs. CALCIFICATIONS: No suspicious calcifications. SOFT TISSUES: No gross mass or suggestion of organomegaly. HARDWARE: Tubal ligation clip is present near the liver tip. BONES: No acute fracture. No worrisome bone lesions. OTHER: No other significant finding. IMPRESSION: 1. General paucity of bowel gas with scattered gas and stool present to the transverse c olon. There are no obvious dilated loops of bowel to suggest obstruction. No free air in the abdome n on supine radiographs. 2. Tubal ligation clip is present near the liver tip, not in the expected pelvic location. This may reflect technical failure of tubal ligation. TECHNICAL DOCUMENTATION: JOB ID: [id number] [employer]- All Rights Reserved Reading location - IP/workstation name: [email or web address]
[2018-06-17 15:32] LABS: ALANINE AMINOTRANSFERASE 23 U/L (9-52); ALBUMIN 4.3 g/dL (3.5-5.0); ALKALINE PHOSPHATASE 73 U/L (38-126); ANION GAP 14 (5-19); ASPARTATE AMINO TRANSFERASE 21 U/L (14-36); BILIRUBIN,DIRECT 0.2 mg/dL (0.0-0.4); BILIRUBIN,TOTAL 0.2 mg/dL (0.2-1.3); BLOOD UREA NITROGEN 11 mg/dL (7-20); CALCIUM 9.8 mg/dL (8.4-10.2); CARBON DIOXIDE 26 mmol/L (22-30); CHLORIDE 104 mmol/L (98-107); GLUCOSE 98 mg/dL (75-110); POTASSIUM 4.6 mmol/L (3.6-5.0); SODIUM 144.3 mmol/L (137-145)
[2018-06-17 16:13] LABS: INTERNATIONAL RATION (INR) 0.92; PROTHROMBIN TIME 12.8 SEC (11.4-15.4)
[2018-06-17 16:14] LABS: PARTIAL THROMBOPLASTIN TIME 39.4 SEC (23.5-35.8)
--- NOTE | 2018-06-17 17:35 | ER Document Report ---
ED General - General Chief Complaint: Diarrhea Stated Complaint: DIARRHEA/NUMBNESS IN ARM Time Seen by Provider: 06/17/18 14:30 TRAVEL OUTSIDE OF THE [place] IN LAST 30 DAYS: No - HPI Patient complains to provider of: vaginal bleeding Onset: Other - 32-year-old female presents for a bizarre constellation of symptoms including voice change without any obvious sore throat as well as some pelvic cramping and vaginal bleeding as well as some darkness in her stool. She denies any trauma to the abdomen, recent fevers or chills, vague she does endorse vague abdominal pain, denies palpitations or chest pain. She notes that she feels like her symptoms have worsened since she started her Keppra for her seizures. - Related Data Allergies/Adverse Reactions: No Known Allergies Allergy (Verified 06/17/18 13:52) Past Medical History - General Information source: Patient - Social History Smoking Status: Never Smoker Frequency of alcohol use: None Drug Abuse: None Family History: CAD, DM, Hypertension, Other - breast cancer Patient has suicidal ideation: No Patient has homicidal ideation: No Pulmonary Medical History: Reports: Hx Bronchitis Neurological Medical History: Reports: Hx Seizures Renal/ Medical History: Denies: Hx Peritoneal Dialysis Past Surgical History: Reports: Hx Gynecologic Surgery - ablation, Hx Tubal Ligation - Immunizations Hx Diphtheria, Pertussis, Tetanus Vaccination: Yes Review of Systems - Review of Systems -: Yes All other systems reviewed and negative Physical Exam - Vital signs Vitals: Temp Pulse Resp BP Pulse Ox 98.4 F 80 14 139/88 H 98 06/17/18 13:52 06/17/18 13:52 06/17/18 13:52 06/17/18 13:52 06/17/18 13:52 - General General appearance: Appears well, Alert - HEENT Head: Normocephalic, Atraumatic Eyes: Normal Pupils: PERRL - Respiratory Respiratory status: No respiratory distress Chest status: Nontender Breath sounds: Normal Chest palpation: Normal - Cardiovascular Rhythm: Regular Heart sounds: Normal auscultation Murmur: No - Abdominal Inspection: Normal Distension: No distension Bowel sounds: Normal Tenderness: Nontender Organomegaly: No organomegaly - Back Back: Normal, Nontender - Extremities General upper extremity: Normal inspection, Nontender, Normal color, Normal ROM , Normal temperature General lower extremity: Normal inspection, Nontender, Normal color, Normal ROM , Normal temperature, Normal weight bearing. No: Emili's sign - Neurological Neuro grossly intact: Yes Cognition: Normal Orientation: AAOx4 [place] Coma Scale Eye Opening: Spontaneous [place] Coma Scale Verbal: Oriented Janine Coma Scale Motor: Obeys Commands [place] Coma Scale Total: 15 Speech: Normal Motor strength normal: LUE, RUE, LLE, RLE Sensory: Normal - Psychological Associated symptoms: Normal affect, Normal mood Course - Re-evaluation Re-evalutation: 06/17/18 23:29 Well-appearing 32-year-old female presents for evaluation of change in voice as well as vaginal bleeding and some she is unable to relate exactly when this all began but notes that the vaginal bleeding is been bothersome and she is been told in the past she has uterine fibroids. She endorses some fatigue as well. 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 She is neurologically intact, she is incredibly well-appearing with a benign abdominal exam nation. She does have some fullness in her tonsils however intermittently her voice quality is entirely normal. Occasionally her voice will have a relapse to this a squeaky version of it which seems a somewhat intentional. We will obtain a rectal examination as well for possible Hemoccult. H&H is stable, no appreciable bleeding risk factors such as low platelets, change coagulation, no obvious abnormality in her chemistry. Rectal examination is normal, she has no blood in her stool. We will plan for discharge with this dose of Decadron for her sore throat though there is limited evidence for the benefit at this believe it is worth a try. - Vital Signs Vital signs: Temp Pulse Resp BP Pulse Ox 98.0 F 80 16 135/80 H 100 06/17/18 17:52 06/17/18 17:52 06/17/18 17:52 06/17/18 17:52 06/17/18 17:52 - Laboratory Result Diagrams: 06/17/18 14:57 06/17/18 14:57 Laboratory results interpreted by me: 06/17/18 06/17/18 14:57 15:48 WBC 11.8 H Hgb 11.5 L Hct 35.1 L MCH 26.6 L RDW 14.2 H APTT 39.4 H Discharge - Discharge Clinical Impression: Vaginal bleeding, Sore throat, Dark stools Condition: Good Disposition: HOME, SELF-CARE Instructions: Dysfunctional Uterine Bleeding ([facility]), Vaginal Bleeding ([facility]) Additional Instructions: You were seen today in the emergency department for your dark stool as well as vaginal bleeding and fatigue. You also had a change in her voice. The change in her voice could be related to a viral pharyngitis. You were treated with a steroid for this. You do seem to think that many of your symptoms could potentially related to your Keppra usage. Because this is the case he should speak to the prescriber about whether or not he should continue taking the Keppra. Continue taking it until you have a discussion with your doctor about it. Your stool was negative for any blood. Do not take any blood thinners. Schedule appointment with your radio control crane operator to speak about potential uterine bleeding and management options. Return for worsening headaches, fatigue, if you begin to have profuse bleeding which does not stop, having to change one pad per hour for greater than 4 hours. Referrals: LINDA GUPTA PA-C [Primary Care Provider] - Follow up as needed
[2018-06-17 18:20] VITALS: BP 135/80
[2018-06-17] MEDS ORDERED: DEXAMETHASONE CONC 1 MG/ML SOLN PO ONE (18:26)
== END 2018-06-17 19:12 | disposition home or self-care (01) ==
LOC: ER 13:50
DX: J02.9 Acute pharyngitis, unspecified (principal); R19.7 Diarrhea, unspecified; R19.5 Other fecal abnormalities; N93.8 Other specified abnormal uterine and vaginal bleeding; R20.0 Anesthesia of skin; Z98.51 Tubal ligation status
CPT/HCPCS: 99284; 36415; 85025; 85610; 85730; 82272; 80053; 74018; J8540

== ENCOUNTER 2019-05-18 14:09 | Emergency (ER) | payer MEDICAID ==
--- NOTE | 2019-05-18 14:25 | ER Document Report ---
ED Medical Screen (RME) - General Chief Complaint: Headache Stated Complaint: HEADACHES/SEIZURE Time Seen by Provider: 05/18/19 14:20 Primary Care Provider: LINDA GUPTA PA-C [Primary Care Provider] - Follow up as needed Mode of Arrival: Wheelchair Information source: Patient Notes: 33-year-old female presents to ED for complaint of a headache with nausea no em esis. She states she has had some tremors but not as seizure. She states she does have a history of seizures and is on for further seizures. She states her last seizure was about a week ago and states she did not get seen for the last seizure. She states her 9-year-old daughter was with her when she had the seizure a week ago. Patient states she has a history of migraines seizures and high blood pressure. She states she does not use illicit drugs alcohol or tobacco. States she does live at home alone with her daughter. States she took her migraine medication and called the doctor he told her to take an Excedrin if it did not ease up in 20 minutes to come into the emergency room to be monitored. She states it has not eased up. She states she has so much pressure in her head at this time. She states she has had a history of "water on the head "and they give her a water pill but she does not have that water pill with her at this time. I have greeted and performed a rapid initial assessment of this patient. A comprehensive ED assessment and evaluation of the patient, analysis of test results and completion of medical decision making process will be conducted by an additional ED providers. TRAVEL OUTSIDE OF THE [place] IN LAST 30 DAYS: No - Related Data Allergies/Adverse Reactions: No Known Allergies Allergy (Verified 05/18/19 14:17) Past Medical History Pulmonary Medical History: Reports: Hx Bronchitis Neurological Medical History: Reports: Hx Seizures Renal/ Medical History: Denies: Hx Peritoneal Dialysis Past Surgical History: Reports: Hx Gynecologic Surgery - ablation, Hx Tubal Ligation - Immunizations Hx Diphtheria, Pertussis, Tetanus Vaccination: Yes Physical Exam - Vital signs Vitals: Temp Pulse Resp BP Pulse Ox 97.5 F 101 H 16 150/94 H 100 05/18/19 14:13 05/18/19 14:13 05/18/19 14:13 05/18/19 14:13 05/18/19 14:13 Course - Vital Signs Vital signs: Temp Pulse Resp BP Pulse Ox 97.5 F 101 H 16 150/94 H 100 05/18/19 14:13 05/18/19 14:13 05/18/19 14:13 05/18/19 14:13 05/18/19 14:13 Doctor's Discharge - Discharge Referrals: LINDA GUPTA PA-C [Primary Care Provider] - Follow up as needed
[2019-05-18 15:23] LABS: APPEARANCE,URINE CLEAR; BILIRUBIN,URINE NEGATIVE (NEGATIVE); COLOR,URINE STRAW; GLUCOSE, URINE NEGATIVE (NEGATIVE); KETONES,URINE NEGATIVE (NEGATIVE); PROTEIN,URINE NEGATIVE (NEGATIVE); URINE SPECIFIC GRAVITY 1.008; UROBILINOGEN,URINE NEGATIVE mg/dL (<2.0)
[2019-05-18 15:26] LABS: ABSOLUTE BASOPHILS # (AUTO) 0.1 10^3/uL (0.0-0.2); ABSOLUTE EOSINOPHILS # (AUTO) 0.1 10^3/uL (0.0-0.6); ABSOLUTE LYMPHOCYTES (AUTO) 2.7 10^3/uL (0.5-4.7); ABSOLUTE MONOCYTES (AUTO) 0.6 10^3/uL (0.1-1.4); ABSOLUTE NEUT (AUTO) 8.6 10^3/uL (1.7-8.2); BASOPHILS % (AUTO) 0.5 % (0-2); HEMATOCRIT 35.3 % (36.0-47.0); HEMOGLOBIN 11.6 g/dL (12.0-15.5); MEAN CORPUSCULAR HEMOGLOBIN 26.2 pg (27.0-33.4); MEAN CORPUSCULAR HGB CONC 32.8 g/dL (32.0-36.0); MEAN CORPUSCULAR VOLUME 80 fl (80-97); MONOCYTES % (AUTO) 5.3 % (3-13); PLATELET COUNT 408 10^3/uL (150-450); RED BLOOD COUNT 4.42 10^6/uL (3.72-5.28); SEGMENTED NEUTROPHILS % (AUTO) 71.2 % (42-78); TOTAL CELLS COUNTED % (AUTO) 100 %; WHITE BLOOD COUNT 12.1 10^3/uL (4.0-10.5)
--- NOTE | 2019-05-18 15:40 | RADIOLOGY REPORT (SQ) ---
EXAM DESCRIPTION: CT HEAD WITHOUT COMPLETED DATE/TIME: 05/18/2019 3:16 pm REASON FOR STUDY: severe headache hx of seizures COMPARISON: 03/21/2018 TECHNIQUE: Axial images acquired through the brain without intravenous contrast. Images reviewed wi th bone, brain and subdural windows. Additional sagittal and coronal reconstructions were generated. Images stored on PACS. All CT scanners at this facility use dose modulation, iterative reconstruction, and/or weight based d osing when appropriate to reduce radiation dose to as low as reasonably achievable (ALARA). [facility]: Dose Right [facility]: CareDose [facility]: Dose Right [facility]: Teradose 4D [facility]: [employer] RADIATION DOSE: CT Rad equipment meets quality standard of care and radiation dose reduction techniq ues were employed. CTDIvol: 53.2 mGy. DLP: 1097 mGy-cm. mGy. LIMITATIONS: None. FINDINGS: VENTRICLES: Normal size and contour. CEREBRUM: No masses. No hemorrhage. No midline shift. No evidence for acute infarction. Normal gra y/white matter differentiation. There may be a lacunar infarction of the right jo radiata, uncha nged from prior examination (series 2, image 22). CEREBELLUM: No masses. No hemorrhage. No alteration of density. No evidence for acute infarction. EXTRAAXIAL SPACES: No fluid collections. No masses. ORBITS AND GLOBE: No intra- or extraconal masses. Normal contour of globe without masses. CALVARIUM: No fracture. PARANASAL SINUSES: No fluid or mucosal thickening. SOFT TISSUES: No mass or hematoma. OTHER: No other significant finding. IMPRESSION: No acute intracranial pathology. No definite noncontrast CT findings to explain headach e or seizures. There may be a lacunar infarction of the right jo radiata, unchanged from prior ex amination (series 2, image 22). Correlate with clinical history. MRI may be used to more sensitivel y evaluate anatomy if desired. EVIDENCE OF ACUTE STROKE: NO. COMMENT: Quality ID # [id number]: Final reports with documentation of one or more dose reduction techniques (e.g., Automated exposure control, adjustment of the mA and/or kV according to patient size, use of iterative reconstruction technique) TECHNICAL DOCUMENTATION: JOB ID: [id number] [employer]- All Rights Reserved Reading location - IP/workstation name: [email or web address]
[2019-05-18 15:44] LABS: ALBUMIN 4.5 g/dL (3.5-5.0); ALKALINE PHOSPHATASE 74 U/L (38-126); ANION GAP 9 (5-19); ASPARTATE AMINO TRANSFERASE 26 U/L (14-36); BILIRUBIN,DIRECT 0.1 mg/dL (0.0-0.4); BILIRUBIN,TOTAL 0.2 mg/dL (0.2-1.3); BLOOD UREA NITROGEN 8 mg/dL (7-20); CALCIUM 9.7 mg/dL (8.4-10.2); CARBON DIOXIDE 31 mmol/L (22-30); CHLORIDE 98 mmol/L (98-107); POTASSIUM 3.9 mmol/L (3.6-5.0); TOTAL PROTEIN 8.6 g/dL (6.3-8.2)
[2019-05-18] MEDS ORDERED: LORAZEPAM INJ 2 MG/1 ML VIAL ONE (15:44)
[2019-05-18] MEDS ORDERED: LEVETIRACETAM 1000 MG/NACL-ISO 1,000 MG/100 ML RTUPB IV ONE (15:48)
[2019-05-18 15:55] LABS: GLUCOSE 69 mg/dL (75-110)
[2019-05-18] MEDS ORDERED: DEXTROSE 50%-WATER 25 GM/50 ML DISP.SYRIN IV ONE ×3 (15:58→18:05)
--- NOTE | 2019-05-18 15:58 | ER Document Report ---
ED General - General Mode of Arrival: Wheelchair TRAVEL OUTSIDE OF THE [place] IN LAST 30 DAYS: No <JACKSON LINK - Last Filed: 05/18/19 18:38> <MANJULA OSORIO - Last Filed: 05/19/19 00:29> - General Chief Complaint: Headache Stated Complaint: HEADACHES/SEIZURE Time Seen by Provider: 05/18/19 14:20 Primary Care Provider: LINDA GUPTA PA-C [NO LOCAL MD] - Follow up as needed (Is extremely important for you to follow-up with your primary care doctor you may ensure that you are seen by a neurologist and establish care for recurrent seizures. There are no new findings on CT of the head today but in past interpretations it appears he may have a long-standing Chiari malformation which might be the reason for seizures. Please call 911 if you have any seizure activity or other loss of consciousness or severe headache or trouble seeing or other weakness in one area or clumsiness otherwise please follow-up DANIE with your primary care doctor.) - HPI Notes: Manjula Landry is a 33-year-old female who has had multiple visits here since March for headaches and possible seizures. Previous head CT was negative. She came back in today complaining of a "migraine" and proceeded to have what appeared to be a grand mal seizure. I was called to see the patient while she was actively seizing. No further history is obtainable from the patient at this time due to postictal state. I have, however, reviewed all recent records. We note that she has previously been prescribed Keppra but apparently has never filled prescription. She also has not yet been seen by neurologist for evaluation. (JACKSON LINK) - Related Data Allergies/Adverse Reactions: No Known Allergies Allergy (Verified 05/18/19 14:17) Past Medical History - General Information source: Patient - Social History Smoking Status: Never Smoker Chew tobacco use (# tins/day): No Frequency of alcohol use: None Drug Abuse: None Family History: CAD, DM, Hypertension, Other - breast cancer Patient has suicidal ideation: No Patient has homicidal ideation: No Pulmonary Medical History: Reports: Hx Bronchitis Neurological Medical History: Reports: Hx Seizures Endocrine Medical History: Reports: None Renal/ Medical History: Denies: Hx Peritoneal Dialysis Past Surgical History: Reports: Hx Gynecologic Surgery - ablation, Hx Tubal Ligation - Immunizations Hx Diphtheria, Pertussis, Tetanus Vaccination: Yes <JACKSON LINK - Last Filed: 05/18/19 18:38> Review of Systems <JACKSON LINK - Last Filed: 05/18/19 18:38> - Review of Systems Notes: Constitutional: Negative for fever. HENT: Negative for sore throat. Eyes: Negative for visual changes. Cardiovascular: Negative for chest pain. Respiratory: Negative for shortness of breath. Gastrointestinal: Negative for abdominal pain, vomiting or diarrhea. Genitourinary: Negative for dysuria. Musculoskeletal: Negative for back pain. Skin: Negative for rash. Neurological: Headache 10 point ROS negative except as marked above and in HPI. (JACKSON LINK) Physical Exam <JACKSON LINK - Last Filed: 05/18/19 18:38> - Vital signs Vitals: Temp Pulse Resp BP Pulse Ox 97.5 F 101 H 16 150/94 H 100 05/18/19 14:13 05/18/19 14:13 05/18/19 14:13 05/18/19 14:13 05/18/19 14:13 Notes: GENERAL: Somewhat obese female of approximately stated age who is at this time actively seizing with eyes strongly deviated to the right. SKIN: Good turgor no rashes. HEAD: Normocephalic atraumatic. EYES: Pupils are equal and dilated. Conjunctivae and sclerae clear. EARS: CANALS AND TMS CLEAR. NOSE: CLEAR. MOUTH: Moist mucosa. Good dentition. NECK: No masses or thyromegaly. No adenopathy. Carotids 2+ without bruits. No JVD. BACK: Symmetrical without tenderness. CHEST: Respirations unlabored. Breath sounds clear and symmetrical. HEART: Regular rhythm. No murmur gallop or rub. ABDOMEN: Soft obese nontender without masses, organomegaly or rebound. Bowel sounds normally active. No bruits. GENITALIA: Deferred. EXTREMITIES: No edema. No calf tenderness. Cap refill less than 1.5 seconds. Dorsalis pedis and posterior tibial pulses 3+ and symmetrical. NEUROLOGICAL: Actively seizing at the time of initial encounter. (JACKSON LINK) Course - Laboratory Result Diagrams: 05/18/19 14:56 05/18/19 14:56 - Diagnostic Test Radiology reviewed: Reports reviewed <JACKSON LINK - Last Filed: 05/18/19 18:38> - Laboratory Result Diagrams: 05/18/19 14:56 05/18/19 14:56 <MANJULA OSORIO - Last Filed: 05/19/19 00:29> - Vital Signs Vital signs: Temp Pulse Resp BP Pulse Ox 97.5 F 101 H 21 H 115/56 L 100 05/18/19 14:13 05/18/19 14:13 05/19/19 00:02 05/19/19 00:02 05/19/19 00:02 - Laboratory Laboratory results interpreted by me: 05/18/19 05/18/19 05/18/19 14:56 14:56 17:33 WBC 12.1 H Hgb 11.6 L Hct 35.3 L MCH 26.2 L Absolute Neuts (auto) 8.6 H Carbon Dioxide 31 H Glucose 69 L POC Glucose 66 L Total Protein 8.6 H 05/18/19 05/18/19 20:40 21:48 WBC Hgb Hct MCH Absolute Neuts (auto) Carbon Dioxide Glucose POC Glucose 117 H 133 H Total Protein Critical Care Note - Critical Care Note Total time excluding time spent on procedures (mins): 35 <JACKSON LINK - Last Filed: 05/18/19 18:38> - Critical Care Note Comments: Patient is actively seizing. We have established peripheral IV access will give IV Ativan. Cardiac monitoring and supplemental oxygen PRN. Patient's dextrose is 69 on chemistry profile. We going to empirically give her some D50 IV and then recheck serum glucose level. I am also going to administer IV Keppra to the patient at this time. (JACKSON LINK) Discharge <JACKSON LINK - Last Filed: 05/18/19 18:38> <MANJULA OSORIO - Last Filed: 05/19/19 00:29> - Discharge Clinical Impression: Chiari malformation, Seizure Headache Qualifiers: Headache chronicity pattern: episodic headache Condition: Good Disposition: HOME, SELF-CARE Referrals: LINDA GUPTA PA-C [NO LOCAL MD] - Follow up as needed (Is extremely important for you to follow-up with your primary care doctor you may ensure that you are seen by a neurologist and establish care for recurrent seizures. There are no new findings on CT of the head today but in past interpretations it appears he may have a long-standing Chiari malformation which might be the reason for seizures. Please call 911 if you have any seizure activity or other loss of consciousness or severe headache or trouble seeing or other weakness in one area or clumsiness otherwise please follow-up DANIE with your primary care doctor.)
[2019-05-18] MEDS ORDERED: LORAZEPAM INJ 2 MG/1 ML VIAL IV ONE ×2 (16:03→16:25)
[2019-05-18] MEDS ORDERED: METOCLOPRAMIDE HCL INJ/PF 10 MG/2 ML SDV IV ONE (16:09)
[2019-05-18] MEDS ORDERED: KETOROLAC TROMETHAMINE INJ/PF 30 MG/1 ML SDV IV ONE (16:09)
[2019-05-18] MEDS ORDERED: DEXTROSE 10%-WATER 1,000 ML IV PRN (17:38)
--- NOTE | 2019-05-18 18:49 | RADIOLOGY REPORT (SQ) ---
EXAM DESCRIPTION: CHEST SINGLE VIEW COMPLETED DATE/TIME: 05/18/2019 6:29 pm REASON FOR STUDY: seizure COMPARISON: 10/08/2011 EXAM PARAMETERS: NUMBER OF VIEWS: One view. TECHNIQUE: Single frontal radiographic view of the chest acquired. RADIATION DOSE: NA LIMITATIONS: None. FINDINGS: LUNGS AND PLEURA: Low lung volumes. No infiltrate, effusion, or mass. MEDIASTINUM AND HILAR STRUCTURES: No masses. Contour normal. HEART AND VASCULAR STRUCTURES: Heart size is borderline. No nelida pulmonary edema. BONES: No acute findings. HARDWARE: None in the chest. OTHER: No other significant finding. IMPRESSION: Borderline heart size without pulmonary edema. Low lung volumes. TECHNICAL DOCUMENTATION: JOB ID: [id number] [employer]- All Rights Reserved Reading location - IP/workstation name: [email or web address]
--- NOTE | 2019-05-19 | ER Document Report ---
Doctor's Note Notes: 05/18/19 23:59 I assumed care of this patient at the time of signout from previous ER doctor. Plan was to recheck hourly glucose over the next few hours and then if she remained normoglycemic and plan was to discharge with immediate follow-up with her neurologist which she had yet to set an appointment with. she had already been loaded with Keppra while in Ed. 05/19/19 00:03 Per ED note from her first seizure here, CT had appear consistent with long- standing Chiari malformation. CTA head today again did not show any dilating of the ventricles or any acute blood or stroke or other acute change. I awoke pt who was sleeping comfortably. she said she felt better and was starting to wake up and feel almost back to self just mildly groggy. i observed her walk to bathroom independently. I discussed w/ patient in person her old CT reading and that that radiologist interpreted that in only one of her CT's but it might be reason for headaches. Also we reviewed and she expressed agreement understanding of warning signs of vision change, double vision, severe persistent YING, f/c/s/n/v in setting of severe YING to return to ed/seek med attention even if before neuro visit; though paramount she keeps that appt. 06/02/19 15:51 06/02/19 15:54
[2019-05-19 00:58] VITALS: BP 116/58
== END 2019-05-19 00:45 | disposition home or self-care (01) ==
LOC: ER 14:09
DX: G40.89 Other seizures (principal); G44.89 Other headache syndrome; R11.0 Nausea; Z98.51 Tubal ligation status; E66.9 Obesity, unspecified
CPT/HCPCS: 96376; 99284; 96375; 96365; 96366; 36415; 82962; 84703; 85025; 80053; 81001; 71045; 70450; J3490; J1885; J2765; J2060; J1953

== ENCOUNTER 2020-05-28 08:56 | Emergency (ER) | payer MEDICAID ==
--- NOTE | 2020-05-28 10:23 | ER Document Report ---
ED General - General Chief Complaint: Headache Stated Complaint: DIFFICULTY BREATHING, DIARRHEA, Time Seen by Provider: 05/28/20 09:53 Primary Care Provider: LETTY HERNADEZ MD [Primary Care Provider] - Follow up as needed Notes: 34-year-old female presents to the emergency room complaining of cough, headache, muscle aches, fever starting yesterday. The patient states she began to feel achy yesterday. Had a low-grade temp of 99. States she has been coughing since yesterday the cough is been nonproductive had a lot of facial pressure throughout her face some yellow nasal drainage. States her throat is scratchy but not sore. Denies any chest pain but states she does feel a little short of breath. Denies calf pain or leg swelling. Denies hemoptysis or gland swelling. Rates her symptoms as moderate to severe coughing seems to make it worse. TRAVEL OUTSIDE OF THE [place] IN LAST 30 DAYS: No - Related Data Allergies/Adverse Reactions: No Known Allergies Allergy (Verified 05/18/19 14:17) Past Medical History - Social History Smoking Status: Never Smoker Family History: CAD, DM, Hypertension, Other - breast cancer Pulmonary Medical History: Reports: Hx Bronchitis Neurological Medical History: Reports: Hx Seizures Renal/ Medical History: Denies: Hx Peritoneal Dialysis Past Surgical History: Reports: Hx Gynecologic Surgery - ablation, Hx Tubal Ligation - Immunizations Hx Diphtheria, Pertussis, Tetanus Vaccination: Yes Review of Systems - Review of Systems Constitutional: Chills, Fever. denies: Diaphoresis, Recent illness EENT: Nose congestion, Nose discharge, Sinus pressure, Sinus discharge. denies: Throat pain, Difficulty swallowing, Throat swelling, Mouth pain Respiratory: Cough, Short of breath. denies: Hurts to breathe, Hemoptysis, Sputum, Stridor, Wheezing Gastrointestinal: No symptoms reported Genitourinary: denies: Dysuria, Discharge, Frequency, Flank pain, Hematuria Musculoskeletal: denies: Back pain, Joint pain, Neck pain, Ankle swelling Skin: denies: Rash Neurological/Psychological: Headaches. denies: Anxiety, Paralysis, Speech impairment, Numbness, Tingling -: Yes All other systems reviewed and negative Physical Exam - Vital signs Vitals: Temp Pulse Resp BP Pulse Ox 99.5 F 105 H 20 143/100 H 96 05/28/20 09:02 05/28/20 09:02 05/28/20 09:02 05/28/20 09:02 05/28/20 09:02 - Notes Notes: GENERAL_APPEARANCE: well_nourished, alert, cooperative, no_acute_distress, no_obvious_discomfort. VITALS: reviewed, see vital signs table. HEAD: no_swelling\tenderness on the head. EYES: PERRL, EOMI, conjunctiva_clear. NOSE: Clear_nasal_discharge. Moderate turbinate inflammation, discomfort on palpation/percussion of both maxillary sinuses. MOUTH: (-)decreased moisture. No drooling or stridor THROAT: Very mild throat_inflammation, no_airway_obstruction. no_lymphadenopathy NECK: supple, no_neck_tenderness, (-)thyromegaly. No meningismus nuchal rigidity BACK: no_back_tenderness. CHEST_WALL: no_chest_tenderness. LUNGS: no_wheezing, no_rales, no_rhonchi, (-)accessory muscle use, good air exchange bilateral. HEART: normal_rate, normal_rhythm, normal_S1, normal_S2, (-)S3, (-)S4, no_murmur, no_rub. ABDOMEN: normal_BS, soft, no_abd_tenderness, (-)guarding, (-)rebound, no_organomegaly, no_abd_masses. EXTREMITIES: good pulses in all_extremities, no_swelling\tenderness in the extremities, no_edema. SKIN: warm, dry, good_color, no_rash. No purpura or petechiae MENTAL_STATUS: speech_clear, oriented_X_3, normal_affect, responds_appropriately to questions. NEURO: Neg Motor or Sensory Deficits on exam, CN 2-12 intact, No cerbellar signs Course - Re-evaluation Re-evalutation: 05/28/20 10:22 34-year-old female presents with cough scratchy throat muscle aches low-grade temp of 99. Patient states she has been in self quarantine due to her postsurgical history in the spring in September. She had a gland removed concerning for lymphoma. The patient has otherwise been doing well. We will swab her for the flu Covid test. Chest x-ray to assess for pneumonia otherwise blood pres sure is up a little bit but her vital signs are stable blood pressures likely due to whitecoat syndrome. She looks well otherwise. She does have a lot of sinus pressure and congestion. 05/28/20 13:32 Flu is negative Covid is pending chest x-ray showed some mild atelectasis I doubt this is pneumonia. We will place the patient on doxycycline though to cover if it is some Tessalon Perles. We will give patient a work note. - Vital Signs Vital signs: Temp Pulse Resp BP Pulse Ox 99.5 F 105 H 20 143/100 H 96 05/28/20 09:02 05/28/20 09:02 05/28/20 09:02 05/28/20 09:02 05/28/20 09:02 - Diagnostic Test Radiology reviewed: Reports reviewed Radiology results interpreted by me: 05/28/20 13:32 Chest X-Ray 05/28/20 10:11 IMPRESSION: 1. Slight linear subsegmental atelectasis at the right lung base. 2. Cardiomegaly, unchanged finding. No evidence for failure. Discharge - Discharge Clinical Impression: Person under investigation for COVID-19 Sinusitis Qualifiers: Sinusitis location: maxillary Chronicity: acute Recurrence: non-recurrent Qualified Code(s): J01.00 - Acute maxillary sinusitis, unspecified Condition: Good Disposition: HOME, SELF-CARE Instructions: COVID-19 Guidance for Persons Under Investigation, Sinusitis ([facility]) Prescriptions: Benzonatate [Tessalon Perles 100 mg Capsule] 100 mg PO Q8HP PRN #40 capsule PRN Reason: Cough Doxycycline Hyclate [Morgidox] 100 mg PO BID #20 capsule Referrals: LETTY HERNADEZ MD [Primary Care Provider] - Follow up as needed
--- NOTE | 2020-05-28 11:11 | RADIOLOGY REPORT (SQ) ---
EXAM DESCRIPTION: CHEST SINGLE VIEW IMAGES COMPLETED DATE/TIME: 05/28/2020 10:56 am REASON FOR STUDY: cough fever COMPARISON: 05/18/2019 EXAM PARAMETERS: NUMBER OF VIEWS: One view. TECHNIQUE: Single frontal radiographic view of the chest acquired. RADIATION DOSE: NA LIMITATIONS: None. FINDINGS: LUNGS AND PLEURA: Slight subsegmental linear atelectasis at the right lung base. No pneu mothorax or pleural effusion. MEDIASTINUM AND HILAR STRUCTURES: No masses. Contour normal. HEART AND VASCULAR STRUCTURES: Cardiomegaly, unchanged finding. Normal vasculature. BONES: No acute findings. HARDWARE: None in the chest. OTHER: No other significant finding. IMPRESSION: 1. Slight linear subsegmental atelectasis at the right lung base. 2. Cardiomegaly, unchanged finding. No evidence for failure. TECHNICAL DOCUMENTATION: JOB ID: [id number] [employer]- All Rights Reserved Reading location - IP/workstation name: [email or web address]
[2020-05-28 12:05] LABS: A TYPE INFLUENZA AG NEGATIVE (NEGATIVE); B INFLUENZA AG NEGATIVE (NEGATIVE)
[2020-05-28 13:49] VITALS: BP 136/112
== END 2020-05-28 13:49 | disposition home or self-care (01) ==
LOC: ER 08:56
DX: U07.1 COVID-19 (principal); J01.00 Acute maxillary sinusitis, unspecified; J98.11 Atelectasis; I51.7 Cardiomegaly; R05 Cough; R51.9 Headache, unspecified; M79.10 Myalgia, unspecified site; R50.9 Fever, unspecified; J02.9 Acute pharyngitis, unspecified; R06.02 Shortness of breath; R09.81 Nasal congestion
CPT/HCPCS: 99284; 87635; 87804; 71045; C9803